=== PATIENT | male | born 1985 | race Hispanic/Latino ===

== ENCOUNTER → 2022-05-09 | Outpatient (CLI) | payer OTHER ==
[2022-05-09 11:56] LABS: BASOPHILS % (AUTO) 0.9 % (0.0-5.0); EOSINOPHILS % (AUTO) 0.4 % (0.0-8.0); LYMPHOCYTES % (AUTO) 18.5 % (21.0-51.0); MEAN CORPUSCULAR HGB CONC 33.1 g/dL (32.0-36.0); MEAN CORPUSCULAR VOLUME 84.5 fL (79-99); MONOCYTES % (AUTO) 4.9 % (3.0-13.0); NEUTROPHILS % (AUTO) 74.8 % (40.0-77.0); PLATELET COUNT (AUTO) 252 K/uL (130-400); RED BLOOD CELL COUNT(AUTO) 5.68 MIL/uL (4.50-6.20); RED CELL DISTRIBUTION WIDTH 13.7 % (11.0-15.5); WHITE BLOOD COUNT (AUTO) 8.4 K/uL (4.8-10.8)
[2022-05-09 12:05] LABS: HEMOGLOBIN A1C 5.5 % (4.0-6.0)
[2022-05-09 12:45] LABS: ALBUMIN 4.4 g/dL (3.5-5.0); CREATININE 1.2 mg/dL (0.5-1.5); T4 (THYROXINE) 7.4 ug/dL (4.7-13.3); THYROID STIMULATING HORMONE 1.1 uIU/mL (0.36-3.74); TOTAL PROTEIN, SERUM 8.3 g/dL (6.0-8.3)
[2022-05-09 20:10] LABS: HEPATITIS A IGM ANTIBODY Non-Reactive (Nonreactive); HEPATITIS B CORE IGM ANTIBODY Non-Reactive (Negative); HEPATITIS B SURFACE ANTIGEN Non-Reactive (Nonreactive); HEPATITIS C ANTIBODY Non-Reactive (Nonreactive)
== END | disposition home or self-care (01) ==
LOC: LAB 10:24
PROVIDERS: ATTEND Family Medicine
DX: I10 Essential (primary) hypertension (principal); E78.49 Other hyperlipidemia; R94.5 Abnormal results of liver function studies; Z82.3 Family history of stroke
CPT/HCPCS: 36415; 80053; 80061; 80074; 82043; 82306; 82607; 83036; 84436; 84439; 84443; 84479; 84480; 84481; 84482; 85025; 86376; 86707; 86800; 87350; 93005

== ENCOUNTER → 2022-06-06 | Outpatient (CLI) | payer OTHER ==
[~2022-06-06] MED LIST: REGADENOSON 0.4 MG/5 ML PF SYG IVP SCH
== END | disposition home or self-care (01) ==
LOC: RAH 08:55
PROVIDERS: ATTEND Family Medicine
DX: I10 Essential (primary) hypertension (principal); R94.5 Abnormal results of liver function studies; E78.49 Other hyperlipidemia; Z82.3 Family history of stroke
CPT/HCPCS: 78452; 96374; 93017; J2785; A9500 ×2